=== PATIENT | female | born 2000 | race Hispanic/Latino ===

== ENCOUNTER → 2020-12-17 | Outpatient (CLI) | payer MEDICAID | LOC: M LABSMTC 11:48 | PROVIDERS: ATTEND Pediatrics | DX: Z20.822 Contact with and (suspected) exposure to COVID-19 (principal) ==

== ENCOUNTER → 2020-12-29 | Outpatient (REF) | payer MEDICAID ==
[2020-12-29 16:17] LABS: HCG, SERUM QUALITATIVE NEGATIVE (NEGATIVE)
[2020-12-29 16:20] LABS: HCG, SERUM QUANTITATIVE < 1.0 MIU/ML
== END ==
LOC: M LAB REF 15:36
PROVIDERS: ATTEND Physician Assistant
DX: Z32.00 Encounter for pregnancy test, result unknown (principal)

== ENCOUNTER 2022-07-21 09:28 | Emergency (ER) | payer MEDICAID, OTHER ==
[~2022-07-21] VITALS: Ht 162.6 cm; Wt 86.0 kg
[2022-07-21] MEDS ORDERED: LIDOCAINE VISCOUS 2% SOLN 15ML UDC SS ONE (10:55)
[2022-07-21] MEDS ORDERED: KETOROLAC 30 MG/ML 1ML VIAL IV ONE (10:55)
[2022-07-21 11:28] LABS: BASO % 0.5 % (0.0-1.0); EOS % 0.3 % (0.0-3.0); HEMATOCRIT 40.7 % (36.0-47.0); LYMPH # 2.4 10^3/uL (1.5-5.0); LYMPH % 36.8 % (24.0-44.0); MEAN CORPUSCULAR HEMOGLOBIN 30.9 pg (27.0-33.0); MEAN CORPUSCULAR HGB CONC 34.4 g/dl (32.0-36.5); MEAN CORPUSCULAR VOLUME 89.8 fl (80.0-96.0); MONO # 0.4 10^3/uL (0.0-0.8); MONO % 5.9 % (2.0-8.0); NEUTROPHILS # 3.7 10^3/uL (1.5-8.5); NEUTROPHILS % 56.2 % (36.0-66.0); PLATELET COUNT, AUTOMATED 244 10^3/uL (150-450); RED BLOOD COUNT 4.53 10^6/uL (4.00-5.40); WHITE BLOOD COUNT 6.6 10^3/uL (4.0-10.0)
[2022-07-21 11:38] LABS: ERYTHROCYTE SEDIMENTATION RATE 17 mm/hr (0-20)
[2022-07-21 11:42] LABS: HCG, SERUM QUALITATIVE NEGATIVE (NEGATIVE)
[2022-07-21 11:43] LABS: C REACTIVE PROTEIN QUANTITATIV < 0.40 MG/DL (<1.0)
[2022-07-21 11:44] LABS: BLOOD UREA NITROGEN 11 MG/DL (9-23); CALCIUM LEVEL 8.6 MG/DL (8.5-10.1); CARBON DIOXIDE LEVEL 26 MMOL/L (20-31); CHLORIDE LEVEL 107 MMOL/L (98-107); CREATININE FOR GFR 0.57 MG/DL (0.55-1.30); GLOMERULAR FILTRATION RATE > 60.0 (>60); GLUCOSE, FASTING 94 MG/DL (60-100); POTASSIUM SERUM 4.1 MMOL/L (3.5-5.1); SODIUM LEVEL 139 MMOL/L (136-145)
[2022-07-21] MEDS ORDERED: LIDO15SO4 PO (12:01)
[2022-07-21 12:12] VITALS: BP 119/70
== END 2022-07-21 12:38 | disposition home or self-care (01) ==
LOC: M ED 09:28
DX: J02.9 Acute pharyngitis, unspecified (principal)
CPT/HCPCS: 36415; 80048; 83605; 84703; 85025; 85652; 86140; 87880; 96374; 99284; J1885

== ENCOUNTER 2022-11-15 17:54 | Emergency (ER) | payer OTHER ==
[~2022-11-15] VITALS: Ht 162.6 cm; Wt 88.5 kg
[~2022-11-15 17:54] MED LIST: LIDO15SO PO
[2022-11-15 17:55] VITALS: BP 132/79; TEMP 97.8; O2SAT 98
[2022-11-15] MEDS ORDERED: DOXYCYCLINE HYCLATE 100MG TABLET PO ONE (20:10)
[2022-11-15] MEDS ORDERED: DOXY-443 PO (20:17)
[2022-11-15] MEDS ORDERED: CLIN1LOT TOP (20:17)
== END 2022-11-15 20:43 | disposition home or self-care (01) ==
LOC: M ED 17:54
DX: L73.2 Hidradenitis suppurativa (principal); F31.9 Bipolar disorder, unspecified; Z79.899 Other long term (current) drug therapy